=== PATIENT | female | born 1980 | race African-American/Black ===

== ENCOUNTER 2016-12-14 14:16 | Emergency (ER) | payer BC ==
[~2016-12-14] VITALS: Ht 165.1 cm; Wt 89.4 kg
[2016-12-14 14:48] VITALS: BP 118/60
--- NOTE | 2016-12-14 15:30 | RAD ---
Indication chronic pain. AP lateral and oblique views of the right knee were obtained as well as a sunrise view. There are small osteophytes medially and laterally. Bony mineralization appears normal. An acute finding is not apparent. There is some patellofemoral narrowing. There is a probable loose body in the joint IMPRESSION: No acute bony finding. Degenerative change. Probable loose body in the joint
--- NOTE | 2016-12-14 15:44 | PHYS DOC ---
Past Medical History Past Medical History: Other Additional Past Medical Histor: CHRONIC RIGHT KNEE PAIN Past Surgical History: Other Additional Past Surgical Histo: R knee Alcohol Use: None Drug Use: None Adult General Chief Complaint Chief Complaint: KNEE INJURY HPI HPI Patient is a 36 year old female presents to the emergency department with a history of right knee problems. patient states that she has had knee surgery in the past in which they went into some scraping. Patient states that they told her that potentially she'll need a knee replacement. Patient states in the last 3 or 4 days she's been having some cramping and pain in the upper thigh down into the lower leg area. She states that she has increased pain whenever she is trying to ambulate in the back of her calf. Patient denies being on any blood thinners. She denies being on any control pills denies any recent travel denies any history of blood clots. Review of Systems Review of Systems Constitutional: Denies fever or chills [] Eyes: Denies change in visual acuity, redness, or eye pain [] HENT: Denies nasal congestion or sore throat [] Respiratory: Denies cough or shortness of breath [] Cardiovascular: No additional information not addressed in HPI [] GI: Denies abdominal pain, nausea, vomiting, bloody stools or diarrhea [] : Denies dysuria or hematuria [] Musculoskeletal: Denies back pain or joint pain. Complaint of right lower leg pain and discomfort Integument: Denies rash or skin lesions [] Neurologic: Denies headache, focal weakness or sensory changes [] Endocrine: Denies polyuria or polydipsia [] Current Medications Current Medications Current Medications Medications (Trade) Dose Ordered Sig/[facility] Start Time Stop Time Status Last Admin Dose Admin Naproxen (Naprosyn) 500 mg 1X ONCE 12/14/16 15:45 12/14/16 15:46 DC 12/14/16 16:10 500 MG Allergies Allergies Allergies Coded Allergies Type Severity Reaction Last Updated Verified No Known Drug Allergies 01/19/15 No Physical Exam Physical Exam Constitutional: Well developed, well nourished, no acute distress, non-toxic appearance. [] HENT: Normocephalic, atraumatic, bilateral external ears normal, oropharynx moist, no oral exudates, nose normal. [] Eyes: PERRLA, EOMI, conjunctiva normal, no discharge. [] Neck: Normal range of motion, no tenderness, supple, no stridor. [] Cardiovascular:Heart rate regular rhythm Lungs & Thorax: No respiratory distress noted Skin: Warm, dry, no erythema, no rash. [] Back: No tenderness Extremities: No tenderness, no cyanosis, no clubbing, ROM intact, no edema. Right lower leg positive Homans sign. Peripheral pulses 2+ cap refill brisk less than 2 seconds. Patient with a popping noise when she bends her right knee. Neurologic: Alert and oriented X 3, normal motor function, normal sensory function, no focal deficits noted. [] Psychologic: Affect normal, judgement normal, mood normal. [] Current Patient Data Vital Signs Vital Signs Date Time Temp Pulse Resp B/P (MAP) Pulse Ox O2 Delivery O2 Flow Rate FiO2 12/14/16 14:48 98.6 79 20 118/60 (79) 98 Room Air 98.6 EKG EKG [] Radiology/Procedures Radiology/Procedures [address] [address] IMAGING REPORT Signed PATIENT: RUSTY BROWN ACCOUNT: [id number] : 1980 LOCATION: ER AGE: 36 SEX: F EXAM STATUS: REG ER ORD. PHYSICIAN: JULIA JACOBO APRN REASON: calf pain right, with muscle spasm PROCEDURE: VENOUS LOWER EXTREMITY RIGHT INDICATION: Right leg pain COMPARISON: None. TECHNIQUE: Grayscale, color and spectral doppler ultrasound images were obtained of the right lower extremity venous vasculature. RIGHT: No thrombus identified in the common femoral vein, femoral vein, popliteal vein or visualized calf veins. IMPRESSION: 1. No thrombus identified in deep venous system of right lower extremity. DICTATED and SIGNED BY: ADRIANA SHAH MD DATE: 12/14/16 1601 CC: JULIA JACOBO APRN; NO PCP; NON,STAFF ~ [] [address] [address] IMAGING REPORT Signed PATIENT: RUSTY BROWN ACCOUNT: [id number] : 1980 LOCATION: ER AGE: 36 SEX: F EXAM STATUS: REG ER ORD. PHYSICIAN: JULIA JACOBO APRN REASON: right knee pain PROCEDURE: KNEE RIGHT 4V Indication chronic pain. AP lateral and oblique views of the right knee were obtained as well as a sunrise view. There are small osteophytes medially and laterally. Bony mineralization appears normal. An acute finding is not apparent. There is some patellofemoral narrowing. There is a probable loose body in the joint IMPRESSION: No acute bony finding. Degenerative change. Probable loose body in the joint DICTATED and SIGNED BY: NAKUL PINTO MD DATE: 12/14/16 1326 CC: JULIA JACOBO APRN; NO PCP; NON,STAFF ~ Course & Med Decision Making Course & Med Decision Making Pertinent Labs and Imaging studies reviewed. (See chart for details) Ultrasound was negative for any blood clots. X-ray was negative for any bony abnormalities questionable foreign body noted per radiology. Patient had labs drawn and still pending at this time. Patient has requested to leave as she has to chart picker family members. Patient was asking in regards to coming back in following up with the results. Explained to patient that she would need to check back in and that would be considered another visit. Patient states is her anything more that I can take for pain besides ibuprofen and naproxen or Aleve. Explained to patient that this would be the treatment of choice at this time. Patient states I would like to have something stronger than that although I do not want any narcotics. Patient states that she would like to have a prescription for tramadol. Patient to tramadol is considered a narcotic. Patient was instructed that she can use Tylenol or ibuprofen [id number] she may follow up with her orthopedic in which she states she has an appointment third week of December. Patient was discharged home with verbal instructions as she could not wait for written instructions to be completed. Patient was aware that it would proximately be one hour before her lab results will be back. Patient states that she cannot wait any longer to get the results and has chosen to leave. Dragon Disclaimer Dragon Disclaimer This electronic medical record was generated, in whole or in part, using a voice recognition dictation system. Departure Departure Impression: Primary Impression: Knee pain, right Disposition: 01 HOME, SELF-CARE Condition: STABLE Referrals: NO PCP (PCP) Patient Instructions: Knee Pain, [id number] Additional Instructions: Ultrasound was negative for any blood clots. X-ray was negative for any bony abnormalities of the questionable foreign body was noted. You have chosen to leave prior to receiving her lab results. You have been provided with naproxen here the emergency department. He may take Aleve or ibuprofen [id number]. Keep your follow-up appointment which you have at the third week in December to orthopedic. Return back to emergency department for signs and symptoms of become worse. JULIA JACOBO ELECTRO TECH Dec 14, 2016 15:44
[2016-12-14] MEDS ORDERED: NAPROXEN 500 MG TABLET PO ONE (15:45)
--- NOTE | 2016-12-14 16:05 | RAD ---
INDICATION: Right leg pain COMPARISON: None. TECHNIQUE: Grayscale, color and spectral doppler ultrasound images were obtained of the right lower extremity venous vasculature. RIGHT: No thrombus identified in the common femoral vein, femoral vein, popliteal vein or visualized calf veins. IMPRESSION: 1. No thrombus identified in deep venous system of right lower extremity.
[2016-12-14 16:20] LABS: CALCIUM 8.7 mg/dL (8.5-10.1); CREATININE 0.7 mg/dL (0.6-1.0); GFR 113.9; POTASSIUM 3.9 mmol/L (3.5-5.1)
[2016-12-14 16:26] LABS: ALBUMIN 3.6 g/dL (3.4-5.0); ALBUMIN/GLOBULIN RATIO 0.9 (1.0-1.7); TOTAL BILIRUBIN 0.1 mg/dL (0.2-1.0); TOTAL PROTEIN 7.6 g/dL (6.4-8.2)
== END 2016-12-14 16:13 | disposition home or self-care (01) ==
LOC: ER 14:16
DX: G89.29 Other chronic pain (principal); M25.561 Pain in right knee; M79.651 Pain in right thigh
CPT/HCPCS: 36415; 73564; 80053; 93971; 99285-25

== ENCOUNTER 2017-03-12 01:06 | Emergency (ER) | payer BC ==
[~2017-03-12] VITALS: Ht 162.6 cm; Wt 88.9 kg
[2017-03-12 01:39] VITALS: BP 170/76
--- NOTE | 2017-03-12 01:49 | PHYS DOC ---
Past Medical History Past Medical History: Other Additional Past Medical Histor: CHRONIC RIGHT KNEE PAIN Past Surgical History: Gastric Bypass, Other Additional Past Surgical Histo: R knee Alcohol Use: Occasionally Drug Use: None Adult General Chief Complaint Chief Complaint: EARACHE/EAR PAIN HPI HPI Patient is a 36 year old female who presents with complaint of left ear pain. The patient states that she was trying to clean her ear using a micah pin when she accidentally scratched her ear. Patient states that she had a small amount of bleeding which has currently resolved. Patient states that she has been having worsening pain since the injury. Patient states this took place approximately 2 hours prior to arrival. Patient denies any other injuries. Patient has not taken any medications for her symptoms. Patient rates her pain as 7 out of 10. Review of Systems Review of Systems Constitutional: Denies fever or chills [] Eyes: Denies change in visual acuity, redness, or eye pain [] HENT: Ear pain, denies nasal congestion or sore throat [] Respiratory: Denies cough or shortness of breath [] Musculoskeletal: Denies back pain or joint pain [] Integument: Denies rash or skin lesions [] Neurologic: Headache, denies focal weakness or sensory changes [] Current Medications Current Medications Current Medications Medications (Trade) Dose Ordered Sig/[facility] Start Time Stop Time Status Last Admin Dose Admin Acetaminophen/ Hydrocodone Bitart (Lortab 7.5/325) 1 tab 1X ONCE 03/12/17 02:00 03/12/17 02:01 DC 03/12/17 02:02 1 TAB Allergies Allergies Allergies Coded Allergies Type Severity Reaction Last Updated Verified No Known Drug Allergies 01/19/15 No Physical Exam Physical Exam Constitutional: Alert, afebrile, appears in mild to moderate discomfort. [] HENT: Normocephalic, atraumatic, bilateral external ears normal, left ear canal with inferior excoriation and small amount of clotted blood at scaring view of left TM, right TM normal, oropharynx moist, no oral exudates, nose normal. [] Eyes: PERRLA, EOMI, conjunctiva normal, no discharge. [] Skin: Warm, dry, no erythema, no rash. [] Extremities: No tenderness, no cyanosis, no clubbing, ROM intact, no edema. [] Neurologic: Alert and oriented X 3, normal motor function, normal sensory function, no focal deficits noted. [] Current Patient Data Vital Signs Vital Signs Date Time Temp Pulse Resp B/P (MAP) Pulse Ox O2 Delivery O2 Flow Rate FiO2 03/12/17 01:39 99.6 69 16 100 Room Air 99.6 EKG EKG Not performed[] Radiology/Procedures Radiology/Procedures Not performed[] Course & Med Decision Making Course & Med Decision Making Pertinent Labs and Imaging studies reviewed. (See chart for details) Left ear canal was irrigated with removal of blood clot. On reevaluation, the TM appears to be intact in the left ear. Patient's symptoms appear consistent with acute ear canal injury. Patient will be prescribed Cortisporin drops to the ear. Recommended follow-up in one week with primary doctor if symptoms are not improving. Advised return emergency department for any worsening symptoms. Patient was understanding and in agreement with treatment plan. Dragon Disclaimer Dragon Disclaimer This electronic medical record was generated, in whole or in part, using a voice recognition dictation system. Departure Departure Impression: Primary Impression: Ear canal abrasion Disposition: HOME, SELF-CARE Condition: IMPROVED Referrals: NO PCP (PCP) Patient Instructions: Ear Barotrauma, [id number] Additional Instructions: Follow-up in one week with your primary doctor for reevaluation. Return to emergency department for any worsening symptoms. Scripts Neomycin/Polymyxin B Sulf/Hc ([id number] EAR SUSP) 10 Ml Drops.susp 4 DROP EACH EAR TID, #10 ML Prov: LUIS ENRIQUE PÉREZ MD 03/12/17 Problem Qualifiers Primary Impression: Ear canal abrasion Encounter type: initial encounter Laterality: left Qualified Codes: S00.412A - Abrasion of left ear, initial encounter LUIS ENRIQUE PÉREZ MD Mar 12, 2017 01:49
[2017-03-12] MEDS ORDERED: HYDROcodone/APAP 7.5/325MG 1 TAB TABLET PO ONE (02:00)
[2017-03-12] MEDS ORDERED: NEOM10DR32 EACH EAR (02:06)
== END 2017-03-12 02:21 | disposition home or self-care (01) ==
LOC: ER 01:06
DX: S00.412A Abrasion of left ear, initial encounter (principal); G89.29 Other chronic pain; W22.8XXA Striking against or struck by other objects, initial encounter; Y93.89 Activity, other specified; Y92.89 Other specified places as the place of occurrence of the external cause; Y99.8 Other external cause status
CPT/HCPCS: 99283